=== PATIENT | male | born 1985 | race African-American/Black ===

== ENCOUNTER 2017-04-08 09:17 | Emergency (ER) | payer MEDICAID ==
[2017-04-08 09:32] VITALS: BP 126/77
[2017-04-08] MEDS ORDERED: ACYCLOVIR 800 MG TABLET PO ONE (09:46)
[2017-04-08] MEDS ORDERED: GABAPENTIN 300 MG CAPSULE PO ONE (09:46)
[2017-04-08] MEDS ORDERED: PREDNISONE 20 MG TABLET PO ONE (09:46)
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
[2017-04-08] MEDS ORDERED: LIDOCAINE 2% JELLY 30 ML TUBE TOP ONE (09:57)
== END 2017-04-08 10:13 | disposition home or self-care (01) ==
LOC: ER 09:17
DX: B02.9 Zoster without complications (principal); R21 Rash and other nonspecific skin eruption
CPT/HCPCS: 99283

== ENCOUNTER 2017-04-15 16:45 | Emergency (ER) | payer MEDICAID ==
--- NOTE | 2017-04-15 17:41 | ER Document Report ---
ED Medical Screen (RME) - General Chief Complaint: Psych Problem Stated Complaint: ALTERED MENTAL STATUS Time Seen by Provider: 04/15/17 17:37 Mode of Arrival: Ambulatory Information source: Patient Notes: 32 yr old male found out today he has HIV presents with complaints of SI and HI. Pt denies any previous similar concerns I have greeted and performed a rapid initial assessment of this patient. A comprehensive ED assessment and evaluation of the patient, analysis of test results and completion of the medical decision making process will be conducted by additional ED providers. PHYSICAL EXAMINATION: GENERAL: Well-appearing, well-nourished and in no acute distress. HEAD: Atraumatic, normocephalic. EYES: Pupils equal round extraocular movements intact, conjunctiva are normal. ENT: Nares patent NECK: Normal range of motion LUNGS: No respiratory distress Musculoskeletal: Normal range of motion NEUROLOGICAL: Normal speech, normal gait. PSYCH: tearful SKIN: Warm, Dry, normal turgor, no rashes or lesions noted. TRAVEL OUTSIDE OF THE [place] IN LAST 30 DAYS: No - Related Data Allergies/Adverse Reactions: Colloidal Oatmeal [From [employer] Oatmeal Bath Regular] Allergy (Verified 04/08/17 09:31) Past Medical History - Social History Chew tobacco use (# tins/day): No Frequency of alcohol use: Rare Drug Abuse: Marijuana Pulmonary Medical History: Denies: Hx Asthma, Hx Bronchitis Renal/ Medical History: Denies: Hx Peritoneal Dialysis Malignancy Medical History: Reports Hx Leukemia - childhood Skin Medical History: Denies Hx Eczema, Denies Hx MRSA Past Surgical History: Reports: Hx Oral Surgery - wisdom teeth - Immunizations Hx Diphtheria, Pertussis, Tetanus Vaccination: Yes - 2015 History of Influenza Vaccine for 04/2017 - 09/2017 Season: No Physical Exam - Vital signs Vitals: Temp Pulse BP Pulse Ox 99.0 F 105 H 129/80 H 95 04/15/17 17:17 04/15/17 17:17 04/15/17 17:17 04/15/17 17:17 Course - Vital Signs Vital signs: Temp Pulse Resp BP Pulse Ox 99.0 F 105 H 129/80 H 95 04/15/17 17:17 04/15/17 17:17 04/15/17 17:17 04/15/17 17:17
[2017-04-15 18:09] LABS: ABSOLUTE LYMPHOCYTES (AUTO) 1.8 10^3/uL (0.5-4.7); ABSOLUTE MONOCYTES (AUTO) 0.7 10^3/uL (0.1-1.4); ABSOLUTE NEUT (AUTO) 3.6 10^3/uL (1.7-8.2); BASOPHILS % (AUTO) 0.3 % (0-2); EOSINOPHILS % (AUTO) 0.5 % (0-6); HEMATOCRIT 38.8 % (37.9-51.0); HEMOGLOBIN 13.6 g/dL (13.5-17.0); MEAN CORPUSCULAR HGB CONC 35.1 g/dL (32.0-36.0); MEAN CORPUSCULAR VOLUME 91 fl (80-97); MONOCYTES % (AUTO) 11.9 % (3-13); RED BLOOD COUNT 4.26 10^6/uL (4.35-5.55); RED CELL DISTRIBUTION WIDTH 12.6 % (11.5-14.0); SEGMENTED NEUTROPHILS % (AUTO) 58.3 % (42-78); WHITE BLOOD COUNT 6.2 10^3/uL (4.0-10.5)
[2017-04-15 18:16] LABS: APPEARANCE,URINE SLIGHTLY-CLOUDY; BILIRUBIN,URINE NEGATIVE (NEGATIVE); GLUCOSE, URINE NEGATIVE (NEGATIVE); KETONES,URINE NEGATIVE (NEGATIVE); LEUKOCYTE ESTERASE,URINE NEGATIVE (NEGATIVE); NITRITE,URINE NEGATIVE (NEGATIVE); PROTEIN,URINE NEGATIVE (NEGATIVE); URINE SPECIFIC GRAVITY 1.018
[2017-04-15 18:20] LABS: ALANINE AMINOTRANSFERASE 25 U/L (21-72); ALBUMIN 4.3 g/dL (3.5-5.0); ALKALINE PHOSPHATASE 47 U/L (38-126); ANION GAP 8 (5-19); ASPARTATE AMINO TRANSFERASE 17 U/L (17-59); BILIRUBIN,DIRECT 0.3 mg/dL (0.0-0.4); BILIRUBIN,TOTAL 0.6 mg/dL (0.2-1.3); BLOOD UREA NITROGEN 11 mg/dL (7-20); CALCIUM 9.5 mg/dL (8.4-10.2); CARBON DIOXIDE 30 mmol/L (22-30); CHLORIDE 99 mmol/L (98-107); CREATININE RESULT 1.12 mg/dL (0.52-1.25); GLUCOSE 96 mg/dL (75-110); POTASSIUM 3.6 mmol/L (3.6-5.0); TOTAL PROTEIN 8.1 g/dL (6.3-8.2)
[2017-04-15 18:21] LABS: ALCOHOL < 10 mg/dL (NONE DETECTED)
[2017-04-15 18:31] LABS: URINE BARBITURATES SCREEN NEGATIVE; URINE METHADONE SCREEN NEGATIVE; URINE OPIATES LOW NEGATIVE; URINE PHENCYCLIDINE SCREEN NEGATIVE
--- NOTE | 2017-04-15 20:03 | ER Document Report ---
ED General - General Chief Complaint: Psych Problem Stated Complaint: ALTERED MENTAL STATUS Time Seen by Provider: 04/15/17 17:37 Mode of Arrival: Ambulatory Notes: Patient is a 32-year-old male with a past medical history of HIV that was just diagnosed today who presents with acute suicidal and homicidal ideation. Patient reports shortly after finding out this news he became acutely suicidal without any specific plan. He has no history of prior depression, anxiety or psychiatric illness. He denies a specific plans or means to commit suicide or homicide. He denies any acute medical concerns or complaints today. Nothing improves or worsens his symptoms. He has discussed with his physical therapy attendant she states has somewhat helped his anxiety but has not relieved suicidal ideation. TRAVEL OUTSIDE OF THE [place] IN LAST 30 DAYS: No - Related Data Allergies/Adverse Reactions: Colloidal Oatmeal [From [employer] Oatmeal Bath Regular] Allergy (Verified 04/08/17 09:31) Home Medications: Current Home Medications No Home Medications 04/15/17 [History] Past Medical History - General Information source: Patient - Social History Smoking Status: Current Every Day Smoker Chew tobacco use (# tins/day): No Frequency of alcohol use: Rare Drug Abuse: Marijuana Lives with: Spouse/Significant other Family History: Reviewed & Not Pertinent Patient has suicidal ideation: Yes Patient has homicidal ideation: Yes Pulmonary Medical History: Denies: Hx Asthma, Hx Bronchitis Renal/ Medical History: Denies: Hx Peritoneal Dialysis Malignancy Medical History: Reports Hx Leukemia - childhood Skin Medical History: Denies Hx Eczema, Denies Hx MRSA Past Surgical History: Reports: Hx Oral Surgery - wisdom teeth - Immunizations Hx Diphtheria, Pertussis, Tetanus Vaccination: Yes - 2014 Review of Systems - Review of Systems Notes: Constitutional: Negative for fever. HENT: Negative for sore throat. Eyes: Negative for visual changes. Cardiovascular: Negative for chest pain. Respiratory: Negative for shortness of breath. Gastrointestinal: Negative for abdominal pain, vomiting or diarrhea. Genitourinary: Negative for dysuria. Musculoskeletal: Negative for back pain. Skin: Negative for rash. Neurological: Negative for headaches, weakness or numbness. 10 point ROS negative except as marked above and in HPI. Physical Exam - Vital signs Vitals: Temp Pulse BP Pulse Ox 99.0 F 105 H 129/80 H 95 04/15/17 17:17 04/15/17 17:17 04/15/17 17:17 04/15/17 17:17 Interpretation: Tachycardic Notes: PHYSICAL EXAMINATION: GENERAL: Well-appearing, well-nourished and in no acute distress. HEAD: Atraumatic, normocephalic. EYES: Pupils equal round and reactive to light, extraocular movements intact, sclera anicteric, conjunctiva are normal. ENT: nares patent, oropharynx clear without exudates. Moist mucous membranes. NECK: Normal range of motion, supple without lymphadenopathy LUNGS: Breath sounds clear to auscultation bilaterally and equal. No wheezes rales or rhonchi. HEART: Regular rate and rhythm without murmurs ABDOMEN: Soft, nontender, normoactive bowel sounds. No guarding, no rebound. No masses appreciated. EXTREMITIES: Normal range of motion, no pitting or edema. No cyanosis. NEUROLOGICAL: No focal neurological deficits. Moves all extremities spontaneously and on command. PSYCH: Anxious, tearful SKIN: Warm, Dry, normal turgor, no rashes or lesions noted. Course - Re-evaluation Re-evalutation: 04/15/17 20:01 Patient presents with acute suicidal ideation after finding out that he has HIV. Patient does not have any specific plan but is in a highly emotional state right now and does admit that he is having both suicidal and homicidal thoughts towards the person who may have infected him. His does not currently know that he has HIV. Patient has no prior psychiatric history and this does appear to be in acute grief reaction. Patient does not meet definitive IVC criteria as he has no specific plan, actually has made significant plans on how to cope with this diagnosis and has planned with druze and family members on how to assist him disclosing to his . He has a safe plan on where to stay tonight. However, I believe he would benefit immensely from speaking to psychiatry in the morning to get connected with grief resources, have a complete psychiatric assessment, and and likely be discharged in the morning. He will therefore remain here in the emergency department on a voluntary hold. Patient's medical screening laboratories are unremarkable. He is medically cleared for evaluation in the morning. - Vital Signs Vital signs: Temp Pulse Resp BP Pulse Ox 98.4 F 90 129/83 H 96 04/15/17 21:30 04/15/17 21:30 04/15/17 21:30 04/15/17 21:30 - Laboratory Result Diagrams: 04/15/17 17:47 04/15/17 17:47 Laboratory results interpreted by me: 04/15/17 04/15/17 04/15/17 17:47 17:47 17:47 RBC 4.26 L Urine Urobilinogen 2.0 H Salicylates < 1.0 L Acetaminophen < 10 L - EKG Interpretation by Me Additional EKG results interpreted by me: 04/16/17 03:10 Normal sinus rhythm. Rate 93. No ST elevations or depressions. QTC is 428. Discharge - Discharge Clinical Impression: Suicidal ideation Condition: Good Disposition: PSYCH HOSP/UNIT
[2017-04-15] MEDS ORDERED: ACETAMINOPHEN 325 MG TABLET ONE (20:30)
[2017-04-15] MEDS ORDERED: ACETAMINOPHEN 325 MG TABLET PO ONE (20:33)
[2017-04-16] MEDS ORDERED: ACETAMINOPHEN 325 MG TABLET PO ONE (10:07)
--- NOTE | 2017-04-16 11:08 | EKG REPORT ---
SEVERITY:- NORMAL ECG - SINUS RHYTHM : Confirmed by: Jory Hernandez MD 16-Apr-2017 11:08:16
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
[2017-04-16 11:54] VITALS: BP 143/75
== END 2017-04-16 11:45 | disposition home or self-care (01) ==
LOC: ER 16:45
DX: R41.82 Altered mental status, unspecified (principal); Z21 Asymptomatic human immunodeficiency virus [HIV] infection status; R45.850 Homicidal ideations; R45.851 Suicidal ideations; F17.200 Nicotine dependence, unspecified, uncomplicated
CPT/HCPCS: 93005; 99285; 36415; 80307 ×4; 85025; 80053; 81001; 93010; J3490 ×2

== ENCOUNTER → 2018-07-25 | Outpatient (CLI) | payer SELFPAY ==
[2018-07-25 13:32] LABS: ALANINE AMINOTRANSFERASE 30 U/L (21-72); ALBUMIN 4.9 g/dL (3.5-5.0); ALKALINE PHOSPHATASE 61 U/L (38-126); ANION GAP 7 (5-19); ASPARTATE AMINO TRANSFERASE 32 U/L (17-59); BILIRUBIN,DIRECT 0.1 mg/dL (0.0-0.4); BLOOD UREA NITROGEN 15 mg/dL (7-20); CALCIUM 9.6 mg/dL (8.4-10.2); CARBON DIOXIDE 29 mmol/L (22-30); CHLORIDE 105 mmol/L (98-107); GLUCOSE 91 mg/dL (75-110); POTASSIUM 4.5 mmol/L (3.6-5.0); TOTAL PROTEIN 8.1 g/dL (6.3-8.2)
[2018-07-26 12:38] LABS: % CD 8 POS LYMPH 50.4 % (12.0-35.5); ABSOLUTE CD 4 HELPER 189 /uL (359-1519); ABSOLUTE CD 8 SUPPRESSOR 454 /uL (109-897); CD BASOPHILS 1 % (Not Estab.); CD EOSINOPHILS 1 % (Not Estab.); CD MONOCYTES 14 % (Not Estab.); CD NEUTROPHILS 55 % (Not Estab.); CD4/CD8 RATIO 0.42 (0.92-3.72); HEMOGLOBIN 14.8 g/dL (13.0-17.7); IMMATURE GRANULOCYTES 1 % (Not Estab.); LYMPHS(ABSOLUTE) 0.9 x10E3/uL (0.7-3.1); MCH 31.3 pg (26.6-33.0); MCHC 35.5 g/dL (31.5-35.7); MCV 88 fL (79-97); MONOCYTES(ABSOLUTE) 0.5 x10E3/uL (0.1-0.9); NEUTROPHILS(ABSOLUTE) 1.8 x10E3/uL (1.4-7.0); PLATELETS 220 x10E3/uL (150-379); RBC 4.73 x10E6/uL (4.14-5.80); RDW 13.1 % (12.3-15.4); WBC 3.2 x10E3/uL (3.4-10.8)
[2018-07-27 11:26] LABS: HIV-1 RNA LOG10.. 3.671 (.); HIV-1 RNA PCR QUANT 4690 copies/mL (.)
== END ==
LOC: LAB 12:47
PROVIDERS: ATTEND Physician Assistant
DX: B20 Human immunodeficiency virus [HIV] disease (principal)
CPT/HCPCS: 36415; 80053; 86360; 87536

== ENCOUNTER → 2018-11-30 | Outpatient (CLI) | payer SELFPAY ==
[2018-11-30 13:48] LABS: ALANINE AMINOTRANSFERASE 23 U/L (21-72); ALBUMIN 4.5 g/dL (3.5-5.0); ALKALINE PHOSPHATASE 49 U/L (38-126); ANION GAP 9 (5-19); ASPARTATE AMINO TRANSFERASE 27 U/L (17-59); BILIRUBIN,DIRECT 0.3 mg/dL (0.0-0.4); BILIRUBIN,TOTAL 0.7 mg/dL (0.2-1.3); BLOOD UREA NITROGEN 16 mg/dL (7-20); CARBON DIOXIDE 27 mmol/L (22-30); CHLORIDE 106 mmol/L (98-107); GLUCOSE 103 mg/dL (75-110); POTASSIUM 4.2 mmol/L (3.6-5.0); SODIUM 142.4 mmol/L (137-145); TOTAL PROTEIN 7.9 g/dL (6.3-8.2)
[2018-12-01 11:38] LABS: % CD 4 POS LYMPH 20.4 % (30.8-58.5); % CD 8 POS LYMPH 45.1 % (12.0-35.5); ABSOLUTE CD 4 HELPER 326 /uL (359-1519); ABSOLUTE CD 8 SUPPRESSOR 722 /uL (109-897); CD BASOPHILS 0 % (Not Estab.); CD EOSINOPHILS 3 % (Not Estab.); CD MONOCYTES 11 % (Not Estab.); CD NEUTROPHILS 44 % (Not Estab.); CD4/CD8 RATIO 0.45 (0.92-3.72); EOSINOPHILS (ABSOLUTE) 0.1 x10E3/uL (0.0-0.4); HEMOGLOBIN 15.5 g/dL (13.0-17.7); IMMATURE GRANULOCYTES 0 % (Not Estab.); LYMPHS(ABSOLUTE) 1.6 x10E3/uL (0.7-3.1); MCH 31.9 pg (26.6-33.0); MCHC 34.5 g/dL (31.5-35.7); MCV 92 fL (79-97); MONOCYTES(ABSOLUTE) 0.4 x10E3/uL (0.1-0.9); NEUTROPHILS(ABSOLUTE) 1.7 x10E3/uL (1.4-7.0); RBC 4.86 x10E6/uL (4.14-5.80); RDW 13.4 % (12.3-15.4); WBC 3.9 x10E3/uL (3.4-10.8)
[2018-12-01 14:06] LABS: PLATELETS 249 x10E3/uL (150-450)
[2018-12-02 07:10] LABS: HIV-1 RNA PCR QUANT <20 copies/mL (.)
== END ==
LOC: LAB 13:02
PROVIDERS: ATTEND Internal Medicine Infectious Disease
DX: B20 Human immunodeficiency virus [HIV] disease (principal)
CPT/HCPCS: 36415; 80053; 86360; 87536

== ENCOUNTER 2020-01-30 13:02 | Emergency (ER) | payer SELFPAY ==
[2020-01-30 13:26] VITALS: BP 138/85
--- NOTE | 2020-01-30 13:30 | ER Document Report ---
ED Medical Screen (RME) - General Chief Complaint: Testicular Swelling Stated Complaint: TESTICULAR SWELLING Time Seen by Provider: 01/30/20 13:11 Primary Care Provider: MARINO MCCONNELL MD [Primary Care Provider] - Follow up as needed Mode of Arrival: Ambulatory Information source: Patient Notes: Patient presents complaining of right testicular pain the past 5 days. Patient states the area is swollen and hard. Patient denies any trauma. Patient denies any fever. Patient does report noting some mild hematuria last night which prompted his visit today. I have greeted and performed a rapid initial assessment of this patient. A comprehensive ED assessment and evaluation of the patient, analysis of test results and completion of the medical decision making process will be conducted by additional ED providers. TRAVEL OUTSIDE OF THE [place] IN LAST 30 DAYS: No - Related Data Allergies/Adverse Reactions: Colloidal Oatmeal [From [employer] Oatmeal Bath Regular] Allergy (Verified 04/08/17 09:31) Past Medical History Pulmonary Medical History: Denies: Hx Asthma, Hx Bronchitis Renal/ Medical History: Denies: Hx Peritoneal Dialysis Malignancy Medical History: Reports Hx Leukemia - childhood Skin Medical History: Denies Hx Eczema, Denies Hx MRSA Past Surgical History: Reports: Hx Oral Surgery - wisdom teeth - Immunizations Hx Diphtheria, Pertussis, Tetanus Vaccination: Yes - 2014 Physical Exam - Vital signs Vitals: Temp Pulse Resp BP Pulse Ox 98.5 F 91 16 138/85 H 100 01/30/20 13:14 01/30/20 13:14 01/30/20 13:14 01/30/20 13:14 01/30/20 13:14 - Notes Notes: Patient presents complaining of right testicular tenderness with swelling. Patient states that testicle feels very firm. Patient denies any penile drainage or discharge. Patient states he noticed some mild hematuria last night. Patient states his pain symptoms that started 5 days ago. I have greeted and performed a rapid initial assessment of this patient. A comprehensive ED assessment and evaluation of the patient, analysis of test results and completion of the medical decision making process will be conducted by additional ED providers. Course - Vital Signs Vital signs: Temp Pulse Resp BP Pulse Ox 98.5 F 91 16 138/85 H 100 01/30/20 13:14 01/30/20 13:14 01/30/20 13:14 01/30/20 13:14 01/30/20 13:14 Doctor's Discharge - Discharge Referrals: MARINO MCCONNELL MD [Primary Care Provider] - Follow up as needed
[2020-01-30 14:11] LABS: APPEARANCE,URINE CLOUDY; BILIRUBIN,URINE NEGATIVE (NEGATIVE); COLOR,URINE YELLOW; GLUCOSE, URINE NEGATIVE (NEGATIVE); KETONES,URINE 20 mg/dL (NEGATIVE); LEUKOCYTE ESTERASE,URINE LARGE (NEGATIVE); NITRITE,URINE NEGATIVE (NEGATIVE); PROTEIN,URINE 30 mg/dL (NEGATIVE)
[2020-01-30 15:21] LABS: CHLAM PCR DETECTED (NOT DETECT)
--- NOTE | 2020-01-30 15:29 | RADIOLOGY REPORT (SQ) ---
EXAM DESCRIPTION: U/S SCROTUM W/DOPPLER IMAGES COMPLETED DATE/TIME: 01/30/2020 3:05 pm REASON FOR STUDY: R testicular pain, swelling COMPARISON: None. TECHNIQUE: Static and realtime bowen scale imaging of the scrotum and testes. Selected color Doppler and spectral images recorded to document blood flow. LIMITATIONS: None. FINDINGS: RIGHT: TESTICLE: Normal size 5.1 x 3.3 x 2.9 cm. Normal echotexture. Normal blood flow. Microlithiasis. No mass. EPIDIDYMIS: 18 x 13 x 9 mm. Epididymal tail is hypoechoic. HYDROCELE OR VARICOCELE: Small hydrocele. HERNIA OR EXTRA-TESTICULAR MASS: No. OTHER: No other significant finding. LEFT: TESTICLE: Normal size 4.7 x 2.9 x 2.5 cm. Normal echotexture. Normal blood flow. Microlithiasis. No mass. EPIDIDYMIS: 10 x 8 x 8 mm. Complex area in the epididymal tail measuring 8 x 7 x 7 mm. HYDROCELE OR VARICOCELE: No. HERNIA OR EXTRA-TESTICULAR MASS: No. OTHER: No other significant finding. IMPRESSION: Bilateral epididymitis. Small right hydrocele. TECHNICAL DOCUMENTATION: JOB ID: [id number] 2010 [employer]- All Rights Reserved Reading location - IP/workstation name: [email or web address]
[2020-01-30] MEDS ORDERED: CEFTRIAXONE INJ 250 MG VIAL IM ONE (15:49)
[2020-01-30] MEDS ORDERED: LIDOCAINE 1% INJ-PF (10 MG/ML) 30 ML SDV NEB ONE (15:49)
--- NOTE | 2020-01-30 16:02 | ER Document Report ---
ED General - General Chief Complaint: Testicular Problem Stated Complaint: TESTICULAR SWELLING Time Seen by Provider: 01/30/20 13:11 Primary Care Provider: MARINO MCCONNELL MD [Primary Care Provider] - Follow up as needed Mode of Arrival: Ambulatory Information source: Patient TRAVEL OUTSIDE OF THE [place] IN LAST 30 DAYS: No - HPI Notes: Patient states he has had approximately 3 days of testicular swelling. He states he is also noticed some mild dysuria and blood in the urine starting yesterday. He states he does not have significant pain in the testicles but has some minor discomfort. He states the main thing he has noticed is the swelling. No nausea vomiting. No fevers. He states the discomfort is bilateral testic les. Is no radiation. Nothing makes better or worse. It is constant and mild. - Related Data Allergies/Adverse Reactions: Colloidal Oatmeal [From Aveeno Oatmeal Bath Regular] Allergy (Verified 04/08/17 09:31) Past Medical History - General Information source: Patient - Social History Smoking Status: Current Every Day Smoker Frequency of alcohol use: Social Drug Abuse: Marijuana Family History: Reviewed & Not Pertinent Pulmonary Medical History: Denies: Hx Asthma, Hx Bronchitis Renal/ Medical History: Denies: Hx Peritoneal Dialysis Malignancy Medical History: Reports Hx Leukemia - childhood Skin Medical History: Denies Hx Eczema, Denies Hx MRSA Past Surgical History: Reports: Hx Oral Surgery - wisdom teeth - Immunizations Hx Diphtheria, Pertussis, Tetanus Vaccination: Yes - 2014 Review of Systems - Review of Systems Constitutional: denies: Chills, Fever Cardiovascular: denies: Chest pain, Palpitations Respiratory: denies: Cough, Short of breath -: Yes All other systems reviewed and negative Physical Exam - Vital signs Vitals: Temp Pulse Resp BP Pulse Ox 98.5 F 91 16 138/85 H 100 01/30/20 13:14 01/30/20 13:14 01/30/20 13:14 01/30/20 13:14 01/30/20 13:14 Interpretation: Normal - General General appearance: Appears well, Alert - HEENT Head: Normocephalic, Atraumatic Eyes: Normal Pupils: PERRL - Respiratory Respiratory status: No respiratory distress Chest status: Nontender Breath sounds: Normal Chest palpation: Normal - Cardiovascular Rhythm: Regular Heart sounds: Normal auscultation Murmur: No - Abdominal Inspection: Normal Distension: No distension Bowel sounds: Normal Tenderness: Nontender Organomegaly: No organomegaly - Genitourinary Tenderness: Nontender Scrotum: Swelling, Other - Testicles bilaterally are swollen and firm the right more than the left. There is no significant tenderness to palpation. - Back Back: Normal, Nontender - Extremities General upper extremity: Normal inspection, Nontender, Normal color, Normal ROM, Normal temperature General lower extremity: Normal inspection, Nontender, Normal color, Normal ROM, Normal temperature, Normal weight bearing. No: Cassidy's sign - Neurological Neuro grossly intact: Yes Cognition: Normal Orientation: AAOx4 Vy Coma Scale Eye Opening: Spontaneous Vy Coma Scale Verbal: Oriented [place] Coma Scale Motor: Obeys Commands [place] Coma Scale Total: 15 Speech: Normal Motor strength normal: LUE, RUE, LLE, RLE Sensory: Normal - Psychological Associated symptoms: Normal affect, Normal mood - Skin Skin Temperature: Warm Skin Moisture: Dry Skin Color: Normal Course - Re-evaluation Re-evalutation: 01/30/20 15:58 Patient has evidence of bilateral epididymitis. He also has a positive urine consistent with this. He will be treated with Rocephin and doxycycline. He will also be referred to urology. I have educated the patient that if his swelling and firmness does not lani with antibiotics he will need to be checked for testicular cancer. - Vital Signs Vital signs: Temp Pulse Resp BP Pulse Ox 98.5 F 91 16 138/85 H 100 01/30/20 13:14 01/30/20 13:14 01/30/20 13:14 01/30/20 13:14 01/30/20 13:14 - Laboratory Laboratory results interpreted by me: 01/30/20 01/30/20 13:36 13:36 Urine Protein 30 H Urine Ketones 20 H Urine Blood SMALL H Urine Urobilinogen 2.0 H Ur Leukocyte Esterase LARGE H Chlamydia DNA (PCR) DETECTED H N.gonorrhoeae DNA (PCR) DETECTED H - Diagnostic Test Radiology reviewed: Image reviewed, Reports reviewed Discharge - Discharge Clinical Impression: Bilateral epididymitis, Chlamydia, Gonorrhea Condition: Stable Disposition: HOME, SELF-CARE Instructions: Doxycycline ([facility]), Epididymitis ([facility]), Gonorrhea ([facility]) Additional Instructions: Do not have sexual intercourse until you have finished your antibiotics. Please make sure you are sexual partners are treated before you have intercourse again. Please call urology as soon as possible to arrange follow-up. It is very important that you take and finish all of your antibiotics. If you have any further problems and are unable to see urology please return here to the emergency department Prescriptions: Doxycycline Hyclate 100 mg PO BID 10 Days #20 tablet. Tramadol HCl [Ultram] 50 mg PO Q6 PRN 12 Days #3 tablet PRN Reason: Forms: Return to Work Referrals: MORGAN WATTS MD [NO LOCAL MD] - Follow up in 3-5 days
== END 2020-01-30 16:33 | disposition home or self-care (01) ==
LOC: ER 13:02
DX: N45.1 Epididymitis (principal); A74.9 Chlamydial infection, unspecified; A54.9 Gonococcal infection, unspecified; N43.3 Hydrocele, unspecified; F17.200 Nicotine dependence, unspecified, uncomplicated; F12.10 Cannabis abuse, uncomplicated; Z91.048 Other nonmedicinal substance allergy status
CPT/HCPCS: 99284; 96372; 81001; 87491; 87591; 76870; 93976; J0696